=== PATIENT | female | born 1990 | race Caucasian/White ===

== ENCOUNTER 2021-09-28 10:37 | Outpatient (CLI) | payer MEDICAID ==
[~2021-09-28] VITALS: Ht 167.7 cm; Wt 92.4 kg
[2021-09-28 11:00] VITALS: BP 127/65
[2021-09-28 11:09] LABS: BILIRUBIN,URINE NEGATIVE (NEGATIVE); CLARITY,URINE SL CLOUDY; COLOR,URINE YELLOW; GLUCOSE, URINE (UA) NEGATIVE (NEGATIVE); KETONES,URINE NEGATIVE (NEGATIVE); LEUKOCYTE ESTERASE ,URINE NEGATIVE (NEGATIVE); NITRITE,URINE NEGATIVE (NEGATIVE); PH,URINE 7.5 (5-9); PROTEIN,URINE NEGATIVE (NEGATIVE)
[2021-09-28 11:19] LABS: BACTERIA,URINE TRACE /HPF; RBC,URINE RARE /HPF; WBC,URINE RARE /HPF
[2021-09-28 11:20] LABS: AMORPHOUS SEDIMENT,UR RARE AMOR PHOSPHATE /LPF
[2021-09-28 12:05] LABS: BASOPHILS % (AUTO) 0 % (0-10); EOSINOPHILS # (AUTO) 0.2 10^3/uL (0.0-0.3); EOSINOPHILS % (AUTO) 2 % (0-10); HEMATOCRIT 34 % (35-52); HEMOGLOBIN 11.3 g/dL (11.5-16.0); LYMPHOCYTES # (AUTO) 2.3 10^3/uL (1.0-4.0); LYMPHOCYTES % (AUTO) 17 % (12-44); MEAN CORPUSCULAR HEMOGLOBIN 29 pg (25-34); MEAN CORPUSCULAR HGB CONC 33 g/dL (32-36); MEAN CORPUSCULAR VOLUME 89 fL (80-99); MEAN PLATELET VOLUME 9.1 fL (9.0-12.2); MONOCYTES # (AUTO) 0.8 10^3/uL (0.0-1.0); MONOCYTES % (AUTO) 6 % (0-12); NEUTROPHILS # (AUTO) 10.1 10^3/uL (1.8-7.8); NEUTROPHILS % (AUTO) 74 % (42-75); PLATELET COUNT 239 10^3/uL (130-400); WHITE BLOOD COUNT 13.6 10^3/uL (4.3-11.0)
[2021-09-28 12:26] LABS: ALANINE AMINOTRANSFERASE 14 U/L (0-55); ALBUMIN 3.4 GM/DL (3.2-4.5); ALKALINE PHOSPHATASE 90 U/L (40-136); BILIRUBIN,TOTAL 0.2 MG/DL (0.1-1.0); BUN/CREATININE RATIO 13; CALCIUM 9.4 MG/DL (8.5-10.1); CARBON DIOXIDE 20 MMOL/L (21-32); CHLORIDE 106 MMOL/L (98-107); CREATINE KINASE 18 U/L (29-168); CREATININE SERUM 0.56 MG/DL (0.60-1.30); GFR ESTIMATED 125; GLUCOSE 91 MG/DL (70-105); POTASSIUM 3.8 MMOL/L (3.6-5.0); SODIUM 137 MMOL/L (135-145); TOTAL PROTEIN 6.4 GM/DL (6.4-8.2)
--- NOTE | 2021-09-29 08:07 | Physician Query-Final Dx ---
RICHIE09/29/21 0807: Clinic Account Progress/Dx Physician Query: Please give diagnosis Please include # weeks gestation Date of Service Sep 28, 2021 at 10:37 TONI BLACKWELL DO 09/30/21 1019: Clinic Account Progress/Dx DIAGNOSIS: Diagnosis 25 week gestation threatened labor, ruled out chest pain, ruled out anxiety/panic attack RICHIE,SepSep 29, 2021 08:07 TONI BLACKWELL DO Sep 30, 2021 10:19
== END 2021-09-28 14:17 | disposition home or self-care (01) ==
LOC: WSo 10:37 → LDRP 10:39 → WSo 14:17
PROVIDERS: ATTEND Obstetrics & Gynecology
DX: O62.9 Abnormality of forces of labor, unspecified (principal); O99.344 Other mental disorders complicating childbirth; Z3A.25 25 weeks gestation of pregnancy
CPT/HCPCS: 36415; 80053; 81000; 82550; 84484; 85025; 99213

== ENCOUNTER 2021-12-14 17:32 | Outpatient (CLI) | payer MEDICAID ==
[~2021-12-14] VITALS: Ht 167.7 cm; Wt 98.3 kg
[2021-12-14 17:50] VITALS: BP 122/71
[2021-12-14 18:12] VITALS: BP 122/71
[2021-12-14] MEDS ORDERED: FAMO-119 PO (18:23)
[2021-12-14] MEDS ORDERED: PREN1TAB79 PO (18:23)
[2021-12-14] MEDS ORDERED: CYCL10TA25 PO ×2 (18:24→18:27)
[2021-12-14 18:41] VITALS: BP 122/71
--- NOTE | 2021-12-15 08:26 | Physician Query-Final Dx ---
RICHIE,12/15/21 0826: Clinic Account Progress/Dx Physician Query: Please give diagnosis Please include # weeks gestation Date of Service Dec 14, 2021 at 17:32 TONI BLACKWELL DO 12/15/21 0938: Clinic Account Progress/Dx DIAGNOSIS: Diagnosis 36 week gestation threatened labor history of previous section grand multipara RICHIE,SepDec 15, 2021 08:26 TONI BLACKWELL DO Dec 15, 2021 09:38
== END 2021-12-14 19:18 | disposition home or self-care (01) ==
LOC: WSo 17:32 → LDRP 17:32 → WSo 19:18
PROVIDERS: ATTEND Obstetrics & Gynecology
DX: O60.03 Preterm labor without delivery, third trimester (principal); O34.211 Maternal care for low transverse scar from previous cesarean delivery; O09.43 Supervision of pregnancy with grand multiparity, third trimester; Z3A.36 36 weeks gestation of pregnancy
CPT/HCPCS: 99213

== ENCOUNTER 2022-01-03 05:52 | Inpatient (IN) | payer MEDICAID ==
[~2022-01-03] VITALS: Ht 167.7 cm; Wt 97.7 kg
[2022-01-03] VITALS (58 sets, daily range): BP systolic 88–138; BP diastolic 44–74
[~2022-01-03 05:52] MED LIST: CYCL10TA25 PO; FAMO-119 PO; PREN1TAB79 PO
--- OUTSIDE RECORDS SUMMARY | 2022-01-03 05:57 | XMS REPORT | Clinical Summary ---
Author Author [facility] Address Unknown Phone Unavailable Care Team Providers Care 911 Operator Name Role Phone No, Pcp MERINGUER PCP Unavailable Allergies Comments Active Allergy Reactions Severity Noted Date Amoxicillin-Pot Nausea And 07/09/2008 Clavulanate Vomiting Medications End Date Status Medication Sig Dispensed Refills Start Date Active alprazolam (XANAX) 0.5 MG Take 0.5 mg 0 tablet by mouth. Active buPROPion (WELLBUTRIN) 75 Take 75 mg by 0 MG tablet mouth. Active sertraline (ZOLOFT) 100 Take 100 mg 0 MG tablet by mouth. Active traZODone (DESYREL) 100 Take 100 mg 0 MG tablet by mouth. Active cyclobenzaprine Take 10 mg by 0 (FLEXERIL) 10 MG tablet mouth. 0 Active Problems Not on file Encounters Not on filefrom Last 3 Months Immunizations Name Administration Dates Next Due Flucelvax Quadrivalent 10/03/2018 Prefilled Syringe PPD Test 10/03/2018 Social History Date Tobacco Use Types Packs/Day Years Used Current Every Day Smoker 0.5 17 Smokeless Tobacco: Never Used Tobacco Cessation: Ready to Quit: No; Co unseling Given: Yes Sex Assigned at Date Recorded Not on file Last Filed Vital Signs Reading Time Taken Comments Vital Sign 108/78 02/19/2021 2:52 PM CDT Blood Pressure 89 02/19/2021 2:52 PM CDT Pulse 37.1 C (98.7 F) 02/19/2021 2:52 PM CDT Temperature 18 02/19/2021 2:52 PM CDT Respiratory Rate 98% 02/19/2021 2:52 PM CDT Oxygen Saturation - - Inhaled Oxygen Concentration - - Weight - - Height - - Body Mass Index Plan of Treatment Health Maintenance Due Date Last Done Comments Cervical Cancer: 2009 Screening Goals Not on file Medical Devices Not on file Procedures Not on filefrom Last 3 Months Results Not on filefrom Last 3 Months Additional Health Concerns Not on file Insurance Type Payer Benefit Subscriber ID Effective Phone Address Plan / Dates Group [facility] [employer] [id number] 2020-P [address] [address] [place] [address] Care Teams Start Date End Date 911 Operator Relationship Specialty 10/03/18 No, Pcp, MERINGUER PCP - General Family N/A Do not use Medicine
[2022-01-03] MEDS ORDERED: OXYTOCIN PRE-MIX DRIP 500 ML IV SCH (06:45)
[2022-01-03] MEDS ORDERED: AMPICILLIN FOR IV USE 2,000 MG in NS (IVPB) 50 ML IV SCH (06:45)
[2022-01-03 06:57] LABS: BILIRUBIN,URINE NEGATIVE (NEGATIVE); CLARITY,URINE CLEAR; COLOR,URINE YELLOW; GLUCOSE, URINE (UA) NEGATIVE (NEGATIVE); KETONES,URINE NEGATIVE (NEGATIVE); LEUKOCYTE ESTERASE ,URINE NEGATIVE (NEGATIVE); NITRITE,URINE NEGATIVE (NEGATIVE); PH,URINE 6.5 (5-9); PROTEIN,URINE TRACE (NEGATIVE)
[2022-01-03 07:16] LABS: BACTERIA,URINE TRACE /HPF; WBC,URINE 0-2 /HPF
[2022-01-03] MEDS ORDERED: fentaNYL 2 mcg/ml BUPIVA 0.125 0 ML ONE (07:31)
[2022-01-03] MEDS ORDERED: LACTATED RINGERS 1,000 ML IV ONE ×2 (07:31→17:06)
[2022-01-03 07:34] LABS: BASOPHILS % (AUTO) 0 % (0-10); EOSINOPHILS # (AUTO) 0.2 10^3/uL (0.0-0.3); EOSINOPHILS % (AUTO) 1 % (0-10); HEMATOCRIT 34 % (35-52); HEMOGLOBIN 10.9 g/dL (11.5-16.0); LYMPHOCYTES # (AUTO) 3.4 10^3/uL (1.0-4.0); LYMPHOCYTES % (AUTO) 21 % (12-44); MEAN CORPUSCULAR HEMOGLOBIN 25 pg (25-34); MEAN CORPUSCULAR HGB CONC 32 g/dL (32-36); MEAN CORPUSCULAR VOLUME 79 fL (80-99); MEAN PLATELET VOLUME 9.8 fL (9.0-12.2); MONOCYTES # (AUTO) 1.2 10^3/uL (0.0-1.0); MONOCYTES % (AUTO) 7 % (0-12); NEUTROPHILS # (AUTO) 11.6 10^3/uL (1.8-7.8); NEUTROPHILS % (AUTO) 70 % (42-75); PLATELET COUNT 362 10^3/uL (130-400); WHITE BLOOD COUNT 16.7 10^3/uL (4.3-11.0)
[2022-01-03] MEDS ORDERED: fentaNYL 2 mcg/ml BUPIVA 0.125 100 ML ONE ×2 (07:54→16:01)
[2022-01-03] MEDS: D5 LR IV SOLUTION 1,000 ML IV SCH ×2 (07:58→14:47)
[2022-01-03 08:21] LABS: BAND NEUTROPHILS 4 %; EOSINOPHILS % (MANUAL) 3 %; LYMPHOCYTES % (MANUAL) 21 %; MICROCYTOSIS MODERATE; MONOCYTES % (MANUAL) 4 %; NEUTROPHILS % (MANUAL) 68 %; POLYCHROMASIA SLIGHT
--- NOTE | 2022-01-03 08:29 | History & Physical-OB ---
OB - Chief Complaint & HPI Date/Time Date of Admission: Date of Admission: Jan 03, 2022 at 05:52 Date seen by a Provider: Jan 03, 2022 Time Seen by a Provider: 07:35 Chief Complaint/History OB-Reason for Admission/Chief: Induction of Labor Hx : 9 Hx Para: 6 Expected Date of Delivery: Jan 08, 2022 Gestational Age in Weeks: 39 Gestational Age in Days: 2 Admission Nurse Assessment Rev: Yes History of Labs see PN records Allergies and Home Medications Allergies Coded Allergies: No Known Drug Allergies (Unverified , 09/28/21) Patient Home Medication List Home Medication List Reviewed: Yes Cyclobenzaprine HCl (Cyclobenzaprine HCl) 10 Mg Tablet, 10 MG PO Q8H, (Reported) Entered as Reported by: KOURTNEY QUIROS on 12/14/211826 Last Action: Reviewed Famotidine (Pepcid) 20 Mg Tablet, 20 MG PO BID, (Reported) Entered as Reported by: KOURTNEY QUIROS on 12/14/211822 Last Action: Reviewed Vit W-Ca,Fe,FA(<1 mg) ( Vitamins) 1 Each Tablet, 1 EACH PO DAILY, (Reported) Entered as Reported by: KOURTNEY QUIROS on 12/14/211822 Last Action: Reviewed OB - History Hx of Present Care: Yes Ultrasounds: Normal mid trimester US Obstetrical Complications: None Medical Complications: None Patient Past Medical History n/a Social History/Family History 2nd Hand Smoke Exposure: Yes Immunizations Influenza Vaccine Up-to-Date: No; Not Current Hepatitis A: Yes Hepatitis B: Yes OB - Admission Exam Physical Exam Vitals: Vital Signs 01/03/22 01/03/22 06:54 06:58 Temp 36.9 Pulse 93 Resp 18 B/P (MAP) 122/73 (89) Pulse Ox 97 O2 Delivery Room Air HEENT: NCAT Heart: Rhythm Normal Lungs: Clear Abdomen: Gravid Extremities: Normal Reflexes: Normal Cervical Dilatation: 2cm Effacement: 50% Station: -2 Membranes: Intact Amniotic Fluid: Clear Heart Rate: 130's Accelerations: Accelerations Present Decelerations: No Decelerations Short Term Variability: Present Group Home Variability: Average (6-25) Contractions on Admission: 6-10 Minutes Apart Intensity: Mild Marques Scoring Tool (Modified) Dilation (cm): 1-2cm (1) Effacement (%): 51-79% (2) Descent/Station: -1,0 (2) Cervix Consistency: Soft (2) Cervix Position: Anterior (2) Add 1 point for: Each previous vaginal delivery (1) Marques Score: 14 Labs Laboratory Tests Test 01/03/22 06:30 01/03/22 07:15 Range/Units Urine Color YELLOW Urine Clarity CLEAR Urine pH 6.5 5-9 Urine Specific [place] 1.025 H 1.016-1.022 Urine Protein TRACE H NEGATIVE Urine Glucose (UA) NEGATIVE NEGATIVE Urine Ketones NEGATIVE NEGATIVE Urine Nitrite NEGATIVE NEGATIVE Urine Bilirubin NEGATIVE NEGATIVE Urine Urobilinogen 0.2 < = 1.0 MG/DL Urine Leukocyte Esterase NEGATIVE NEGATIVE Urine RBC (Auto) NEGATIVE NEGATIVE Urine RBC NONE /HPF Urine WBC 0-2 /HPF Urine Squamous Epithelial Cells 2-5 /HPF Urine Crystals NONE /LPF Urine Bacteria TRACE /HPF Urine Casts NONE /LPF Urine Mucus SMALL H /LPF Urine Culture Indicated NO White Blood Count 16.7 H 4.3-11.0 10^3/uL Red Blood Count 4.33 3.80-5.11 10^6/uL Hemoglobin 10.9 L 11.5-16.0 g/dL Hematocrit 34 L 35-52 % Mean Corpuscular Volume 79 L 80-99 fL Mean Corpuscular Hemoglobin 25 25-34 pg Mean Corpuscular Hemoglobin Concent 32 32-36 g/dL Red Cell Distribution Width 14.6 H 10.0-14.5 % Platelet Count 362 130-400 10^3/uL Mean Platelet Volume 9.8 9.0-12.2 fL Immature Granulocyte % (Auto) 1 % Neutrophils (%) (Auto) 70 42-75 % Lymphocytes (%) (Auto) 21 12-44 % Monocytes (%) (Auto) 7 0-12 % Eosinophils (%) (Auto) 1 0-10 % Basophils (%) (Auto) 0 0-10 % Neutrophils # (Auto) 11.6 H 1.8-7.8 10^3/uL Lymphocytes # (Auto) 3.4 1.0-4.0 10^3/uL Monocytes # (Auto) 1.2 H 0.0-1.0 10^3/uL Eosinophils # (Auto) 0.2 0.0-0.3 10^3/uL Basophils # (Auto) 0.0 0.0-0.1 10^3/uL Immature Granulocyte # (Auto) 0.2 H 0.0-0.1 10^3/uL Neutrophils % (Manual) 68 % Lymphocytes % (Manual) 21 % Monocytes % (Manual) 4 % Eosinophils % (Manual) 3 % Band Neutrophils 4 % Polychromasia SLIGHT Microcytosis MODERATE OB - Assessment/Plan/Diagnosis Assessment Assessment: induction of labor Admission Dx 31 yo @ 39 weeks TOLAC GBS pos Admission Status: Inpatient Order (span 2 midnights) Reason for Inpatient Admission: IOL at 39 weeks TOLAC Plan Plan: Induction Induction Method: AROM JANEL MORELOS DO Jan 03, 2022 08:29
[2022-01-03] MEDS ORDERED: fentaNYL INJ 100 MCG/2 ML AMP ONE ×2 (08:50→17:22)
[2022-01-03] MEDS ORDERED: ONDANSETRON 4 MG/2 ML (SDV) Z0FRAN ONE ×2 (09:03→17:22)
[2022-01-03] MEDS: AMPICILLIN FOR IV USE 1,000 MG in NS (IVPB) 50 ML IV SCH ×3 (12:13→16:18)
[2022-01-03] MEDS ORDERED: METOCLOPRAMIDE INJ 10 MG/2 ML (REGLAN) ONE (17:06)
[2022-01-03] MEDS ORDERED: FAMOTIDINE 20MG/2ML IV (PEPCID) ONE (17:06)
[2022-01-03] MEDS ORDERED: CITRIC ACID/SOB CIT (BICITRA) 30 ML UDC ONE (17:06)
[2022-01-03] MEDS ORDERED: ceFAZolin 2 GM IV Premixed 50 ML ONE (17:07)
[2022-01-03] MEDS ORDERED: OXYTOCIN PRE-MIX DRIP 1,000 ML IV ONE (17:22)
--- NOTE | 2022-01-03 17:41 | Progress Note ---
Standard Progress Note Progress Notes/Assess & Plan Date Seen by a Provider: Jan 03, 2022 Time Seen by a Provider: 17:10 Progress/Assessment & Plan Patient admitted this AM for TOLAC. AROM performed and pitocin augmentation as well as GBS + treatment started. She began at 2 cm, and progressed to 3 cm. She had an epidural placed at admission as is protocol. She was unable to progress throughout the remainder of the day nearly 7 hours of pitocin augmentation and position changes. At this point the patient is frustrated and requesting RLTCS. Risk reviewed, all questions answered and consent obtained. Patient to be take to OR momentarily. JANEL MORELOS DO Jan 03, 2022 17:41
[2022-01-03] MEDS ORDERED: ONDANSETRON 4 MG/2 ML (SDV) Z0FRAN IVP PRN (17:45)
[2022-01-03] MEDS ORDERED: MEASLES,MUMPS,RUBELLA 1 EA INJ SC SCH (17:45)
[2022-01-03] MEDS ORDERED: TETANUS,DIPTH,PERTUSS P/F (BOOSTRIX) 0.5 ML VIAL IM SCH (17:45)
[2022-01-03] MEDS ORDERED: NALOXONE 0.4 MG/ML 1 ML (NARCAN) VIAL IV PRN (17:45)
--- NOTE | 2022-01-03 17:48 | Discharge Inst-Women's Service ---
Discharge Inst-Women's Serv Depart Medication/Instructions New, Converted or Re-Newed RX: Transmitted to Pharmacy Problems Reviewed?: Yes Consults/Follow Up Additional Follow Up: Yes Activity Activity: Activity as Tolerated Driving Instructions: No Driving for 1 Week NO SMOKING: NO SMOKING Nothing Inside Vagina: No Douching, No [place], No Tampons Diet Discharge Diet: No Restrictions Symptoms to Report to : Bleeding Excessive, Pain Increased, Fever Over 101 Degrees F, Vaginal Bleeding Increase, Questions/Concerns For Any Problems or Questions: Contact Your Physician Skin/Wound Care Infection Signs and Symptoms: Increased Redness, Foul Odor of Wound, Increased Drainage, Skin Itchy or Has a Rash, Increased Swelling, Temperature Above 101 F Operative Area Clean and Dry: Keep Incision Clean/Dry Stitches/[place]/Dermabond: Dermabond, Care of Stitches Bathing Instructions: JANEL Adams DO Jan 03, 2022 17:48
[2022-01-03] MEDS ORDERED: IBUP-844 PO (17:50)
[2022-01-03] MEDS ORDERED: ACHD5005 PO (17:50)
[2022-01-03] MEDS ORDERED: DOCU100C37 PO (17:50)
[2022-01-03] MEDS ORDERED: KETOROLAC 30 MG/ML VIAL ONE (18:40)
[2022-01-03] MEDS ORDERED: BUPIVACAINE 0.25% 10 ML (SENSORCAINE) VIAL ONE (18:46)
[2022-01-03] MEDS: KETOROLAC 30 MG/ML VIAL IV SCH (20:06)
[2022-01-03] MEDS: DOCUSATE SODIUM 100 MG (COLACE) CAP PO SCH (20:07)
[2022-01-03] MEDS: OXYTOCIN PRE-MIX DRIP 500 ML IV SCH (20:15)
--- NOTE | 2022-01-03 21:32 | OPERATIVE REPORT ---
DATE OF SERVICE: PREOPERATIVE DIAGNOSES: 1. A 31-year-old G9, P6 at 39 and 2 weeks' gestation. 2. Failure to progress. 3. Repeat . POSTOPERATIVE DIAGNOSES: 1. A 31-year-old G9, P6 at 39 and 2 weeks' gestation. 2. Failure to progress. 3. Repeat . PROCEDURE: Repeat low transverse section. SURGEON: Manuelito Morelos DO ANESTHESIA: Spinal. ESTIMATED BLOOD LOSS: 200 mL. URINE OUTPUT: 100 mL clear at the end of the procedure. FLUIDS: 1000 mL lactated Ringer's solution. FINDINGS: A live male infant weighing 7 pounds 5 ounces, Apgars of 8 and 9. Grossly normal appearing uterus, bilateral fallopian tubes and ovaries. SPECIMEN SENT: None. INDICATIONS FOR PROCEDURE: This 31-year-old female patient who was admitted for labor. Please see my preoperative note for complete details pertaining to the patient's labor course and indications for . The patient was then taken to the operating room where spinal analgesia was found to be adequate. She was placed in the supine position with leftward tilt, prepped and draped in normal sterile fashion. A timeout was performed and anesthesia was tested. I then proceeded to make a Pfannenstiel skin incision with a knife and carried down to the underlying fascia using Bovie cautery. The superior aspect of fascial incision was then grasped with Misty clamps, tented up and dissected off the underlying rectus muscles. The inferior aspect of the fascial incision was then grasped with Misty clamps, tented up and dissected off the underlying rectus muscles. Rectus muscles were then dissected down the midline using Mora scissors, which exposed the peritoneum, which entered bluntly and extended using blunt traction. The peritoneum was entered bluntly and extended using blunt traction. Terry ring retractor was placed in the peritoneal incision, which offers excellent lateral sidewall retraction. I identified the lower uterine segment, which was found to be thinned out. I make a low transverse incision to the vesicouterine peritoneum and bluntly dissected off the lower uterine segment, creating a bladder flap. I then proceeded with myotomy until membranes were visualized, at which point I extended the uterine incision laterally and superiorly using bandage scissors. Amniotomy was performed in the process of doing this. The infant was found in vertex presentation. With gentle fundal pressure, the infant's head was elevated up to the incision where the nares and oropharynx were bulb suctioned and nuchal cord was reduced x1. Anterior and posterior shoulders were delivered. The infant was then brought to the operative field with cord serially clamped and cut and was handed off to waiting nurses in attendance. Cord blood was collected. 3-vessel cord with intact placenta was delivered spontaneously thereafter. IV Pitocin was initiated to facilitate uterine contraction. Uterine fundus confirmed by manual massage. The uterus was then exteriorized and cleared of endometrial clots and debris. I then proceeded with closing the uterine incision using 0 Vicryl suture in a running locked fashion. Second layer of imbricating 0 Monocryl was placed. Excellent hemostasis was noted after doing this. I then placed the uterus back in the pelvis and copiously irrigated the pelvis using normal saline. Once again, there was no active bleeding noted from any of my dissection planes. I placed Interceed antiadhesive over my low transverse incision. I removed the Terry ring retractor and then proceeded with closing the peritoneum using 3-0 Vicryl suture in running fashion. The rectus muscles were reapproximated using 3-0 Vicryl suture in interrupted fashion. The fascia was reapproximated using 0 Vicryl suture in running fashion. Subcutaneous tissue was reapproximated using 3-0 plain interrupted subcutaneous stitch and the skin reapproximated using 4-0 Monocryl running subcuticular. Dermabond was applied to incision and sterile dressing with adhesive white tape. Two grams Ancef given preoperatively for infection prophylaxis. Job ID: [id number] DocumentID: [id number] Dictated Date: 01/03/2022 18:38:57 Clearance Cutter Date: 01/03/2022 21:31:41 Dictated By: MANUELITO MORELOS DO
[2022-01-03] MEDS: HYDROcodone/APAP 5 MG/325 MG (LORTAB) TAB PO PRN (23:16)
[2022-01-04] MEDS: OXYTOCIN PRE-MIX DRIP 500 ML IV SCH (00:28)
[2022-01-04] MEDS: AMPICILLIN FOR IV USE 1,000 MG in NS (IVPB) 50 ML IV SCH ×2 (02:27→02:30)
[2022-01-04] MEDS: CATHETER FLUSH 10 ML SYR IV SCH ×3 (02:29→08:31)
[2022-01-04] MEDS: D5 LR IV SOLUTION 1,000 ML IV SCH (02:29)
[2022-01-04 02:30] VITALS: BP 106/59
[2022-01-04] MEDS: KETOROLAC 30 MG/ML VIAL IV SCH ×3 (02:39→19:47)
[2022-01-04] MEDS: HYDROcodone/APAP 5 MG/325 MG (LORTAB) TAB PO PRN ×3 (05:21→21:31)
[2022-01-04 05:28] VITALS: BP 114/58
[2022-01-04 06:09] LABS: BASOPHILS % (AUTO) 0 % (0-10); EOSINOPHILS # (AUTO) 0.2 10^3/uL (0.0-0.3); EOSINOPHILS % (AUTO) 1 % (0-10); HEMATOCRIT 31 % (35-52); HEMOGLOBIN 9.8 g/dL (11.5-16.0); LYMPHOCYTES % (AUTO) 22 % (12-44); MEAN CORPUSCULAR HEMOGLOBIN 25 pg (25-34); MEAN CORPUSCULAR HGB CONC 32 g/dL (32-36); MEAN CORPUSCULAR VOLUME 80 fL (80-99); MEAN PLATELET VOLUME 10.3 fL (9.0-12.2); MONOCYTES # (AUTO) 1.1 10^3/uL (0.0-1.0); MONOCYTES % (AUTO) 8 % (0-12); NEUTROPHILS # (AUTO) 9.5 10^3/uL (1.8-7.8); NEUTROPHILS % (AUTO) 69 % (42-75); PLATELET COUNT 346 10^3/uL (130-400); WHITE BLOOD COUNT 13.8 10^3/uL (4.3-11.0)
[2022-01-04] MEDS: DOCUSATE SODIUM 100 MG (COLACE) CAP PO SCH ×2 (08:31→21:31)
[2022-01-04 08:40] VITALS: BP 120/58
--- NOTE | 2022-01-04 10:13 | Postpartum Progress Note ---
Note Note Day # 1 Subjective: Patient is without complaints. Ambulating, voiding. Tolerating a regular diet without nausea or vomiting. Normal lochia. Pain is tolerable but not feeling relief with oral pain medications. Patient states she was given oral morphine for a back injury a couple of years ago and feel her medication tolerance was affected. Physical Exam: General - Alert and oriented, no apparent distress Abdomen - Soft, appropriately tender to palpation, non-distended, fundus firm at umbilicus; incision c/d/i Extremities - no edema, negative Mei's bilaterally Assessment: Post- day #1 , status post RLTCS. Recovering well, hemodynamically stable Acute blood loss anemia Plan: Routine care. Encourage breast feeding. Encourage ambulation. Ferrous sulfate supplementation. Plan for discharge tomorrow Vitals - Labs Vital Signs - I&O Vital Signs Date Time Temp Pulse Resp B/P (MAP) Pulse Ox O2 Delivery O2 Flow Rate FiO2 01/04/22 05:28 36.6 77 18 114/58 (76) 97 Room Air 01/04/22 02:30 36.6 66 18 106/59 (75) 98 Room Air 01/03/22 23:00 36.9 71 18 98/50 (66) 97 Room Air 01/03/22 20:15 36.1 61 18 110/65 (80) 98 Room Air 01/03/22 19:43 Room Air 01/03/22 19:43 36.4 18 113/55 (74) 99 Room Air 01/03/22 19:30 Room Air 01/03/22 19:30 36.2 18 101/60 (74) 98 Room Air 01/03/22 19:15 36.3 18 97/62 (74) 98 Room Air 01/03/22 19:15 Room Air 01/03/22 18:58 36.3 13 99/44 (62) 97 Room Air 01/03/22 18:58 Room Air 01/03/22 18:43 Room Air 01/03/22 18:43 36.3 13 95/54 (68) 97 Room Air 01/03/22 17:30 36.7 Room Air 01/03/22 17:24 88 16 111/68 (82) Room Air 01/03/22 17:09 74 117/73 (88) Room Air 01/03/22 16:54 65 117/66 (83) Room Air 01/03/22 16:39 67 104/62 (76) Room Air 01/03/22 16:34 36.7 01/03/22 16:24 63 109/61 (77) Room Air 01/03/22 16:10 67 106/56 (73) Room Air 01/03/22 15:47 36.5 18 01/03/22 15:39 89 105/56 (72) Room Air 01/03/22 15:23 87 93/54 (67) Room Air 01/03/22 15:12 76 97/53 (68) Room Air 01/03/22 14:54 76 112/60 (77) Room Air 01/03/22 14:24 63 90/51 (64) Room Air 01/03/22 14:10 63 88/50 (63) Room Air 01/03/22 14:00 36.6 14 01/03/22 13:53 60 97/52 (67) Room Air 01/03/22 13:41 58 90/55 (67) Room Air 01/03/22 13:24 64 97/52 (67) Room Air 01/03/22 13:09 68 110/56 (74) Room Air 01/03/22 12:55 62 114/56 (75) Room Air 01/03/22 12:39 72 108/56 (73) Room Air 01/03/22 12:25 74 111/67 (82) Room Air 01/03/22 12:13 35.9 01/03/22 12:09 75 96/56 (69) Room Air 01/03/22 11:54 58 98/51 (67) Room Air 01/03/22 11:42 66 93/53 (66) Room Air 01/03/22 11:25 67 102/57 (72) Room Air 01/03/22 11:10 66 102/55 (71) Room Air 01/03/22 10:54 67 100/55 (70) Room Air 01/03/22 10:42 36.0 01/03/22 10:39 70 104/63 (77) Room Air 01/03/22 10:24 85 112/65 (81) Room Air I & O 01/04/22 07:00 Intake Total 2964.8 ml Output Total 2330 ml Balance 634.8 ml Labs Laboratory Tests 01/04/22 05:42: White Blood Count 13.8H, Red Blood Count 3.89, Hemoglobin 9.8L, Hematocrit 31L, Mean Corpuscular Volume 80, Mean Corpuscular Hemoglobin 25, Mean Corpuscular Hemoglobin Concent 32, Red Cell Distribution Width 14.8H, Platelet Count 346, Mean Platelet Volume 10.3, Immature Granulocyte % (Auto) 1, Neutrophils (%) (Auto) 69, Lymphocytes (%) (Auto) 22, Monocytes (%) (Auto) 8, Eosinophils (%) (Auto) 1, Basophils (%) (Auto) 0, Neutrophils # (Auto) 9.5H, Lymphocytes # (Auto) 3.0, Monocytes # (Auto) 1.1H, Eosinophils # (Auto) 0.2, Basophils # (Auto) 0.0, Immature Granulocyte # (Auto) 0.1 VENUS JACOBO APRN Jan 04, 2022 10:13
[2022-01-04] MEDS ORDERED: IBUPROFEN 600 MG (MOTRIN) TAB PO ONE (13:23)
[2022-01-04] MEDS: IBUPROFEN 600 MG (MOTRIN) TAB PO SCH ×2 (13:30→18:49)
[2022-01-04 13:32] VITALS: BP 103/57
--- NOTE | 2022-01-04 14:18 | Anesthesia-Regional Post-Op ---
Regional Patient Condition Mental Status: Alert, Oriented x3 Circulation: Same as Pre-Op Headache: Absent Sensation: Full Recovery Motor Block: Absent Post Op Complications Complications None Follow Up Care/Instructions Patient Instructions None needed. Anesthesia/Patient Condition Patient is doing well, no complaints, stable vital signs, no apparent adverse anesthesia problems. CHASTITY PHIPPS DO Jan 04, 2022 14:18
[2022-01-04] MEDS: SIMETHICONE 80 MG (MYLICON) CHEW PO SCH ×3 (15:45→21:31)
[2022-01-04 18:49] VITALS: BP 105/56
[2022-01-05 00:51] VITALS: BP 133/60
[2022-01-05] MEDS: IBUPROFEN 600 MG (MOTRIN) TAB PO SCH ×2 (00:51→06:13)
[2022-01-05 06:18] VITALS: BP_SYST 114; BP_SYST 133; BP_DIAS 56; BP_DIAS 60
[2022-01-05] MEDS: DOCUSATE SODIUM 100 MG (COLACE) CAP PO SCH (08:50)
--- NOTE | 2022-01-05 09:55 | Postpartum Progress Note ---
Note Note Day # 2 Subjective: Patient is without complaints. Ambulating, voiding. Tolerating a regular diet without nausea or vomiting. Normal lochia. Pain is well controlled with oral pain medications, reports pain significantly improved. Physical Exam: General - Alert and oriented, no apparent distress Abdomen - Soft, appropriately tender to palpation, non-distended, fundus firm at umbilicus; incision c/d/i Extremities - no edema, negative Mei's bilaterally Assessment: Post- day # 2, status post RLTCS. Recovering well, hemodynamically stable Acute blood loss anemia Plan: Routine care. Encourage breast feeding. Encourage ambulation. Ferrous sulfate supplementation. Plan for discharge today Vitals - Labs Vital Signs - I&O Vital Signs Date Time Temp Pulse Resp B/P (MAP) Pulse Ox O2 Delivery O2 Flow Rate FiO2 01/05/22 06:18 36.7 86 18 114/56 (75) 97 Room Air 01/05/22 00:51 36.7 69 18 133/60 (84) 97 Room Air 01/04/22 18:49 36.3 72 18 105/56 (72) 96 Room Air 01/04/22 13:32 36.6 76 18 103/57 (72) 98 Room Air I & O 01/05/22 07:00 Intake Total 1200 ml Balance 1200 ml VENUS JACOBO USER EXPERIENCE ANALYST Jan 05, 2022 09:55
[2022-01-05] MEDS: SIMETHICONE 80 MG (MYLICON) CHEW PO SCH (10:15)
[2022-01-05 10:28] VITALS: BP 120/59
== END 2022-01-05 11:30 | disposition home or self-care (01) | DRG 787 ==
LOC: LDRP 05:52
PROVIDERS: ADMIT Obstetrics & Gynecology; ATTEND Obstetrics & Gynecology
PROC: 10907ZC Drainage of Amniotic Fluid, Therapeutic from Products of Conception, Via Natural or Artificial Opening (ICD-10-PCS; 2022-01-03)
PROC: 10D00Z1 Extraction of Products of Conception, Low, Open Approach (ICD-10-PCS; principal; 2022-01-03 17:46)
DX: O34.211 Maternal care for low transverse scar from previous cesarean delivery (principal); D62 Acute posthemorrhagic anemia; O99.824 Streptococcus B carrier state complicating childbirth; Z37.0 Single live birth; O32.4XX0 Maternal care for high head at term, not applicable or unspecified; O69.81X0 Labor and delivery complicated by cord around neck, without compression, not applicable or unspecified; O90.81 Anemia of the puerperium; Z3A.39 39 weeks gestation of pregnancy
CPT/HCPCS: 36415; 81000; 85007; 85025; 85027; 86850; 86900; 86901

== ENCOUNTER → 2022-05-09 | Outpatient (CLI) | payer MEDICAID ==
[~2022-05-09] MED LIST changes: +ACHD5005 PO; +DOCU100C37 PO; +IBUP-844 PO
== END | disposition home or self-care (01) ==
LOC: PREOP 05:28
PROVIDERS: ATTEND Obstetrics & Gynecology
DX: Z01.818 Encounter for other preprocedural examination (principal)

== ENCOUNTER 2022-06-13 05:29 | Outpatient (CLI) | payer MEDICAID ==
[~2022-06-13] VITALS: Ht 167.7 cm; Wt 92.0 kg
== END 2022-06-13 12:19 ==
LOC: PREOP 05:29
PROVIDERS: ATTEND Obstetrics & Gynecology
DX: Z01.818 Encounter for other preprocedural examination (principal); N81.10 Cystocele, unspecified; N94.6 Dysmenorrhea, unspecified

== ENCOUNTER 2022-12-28 21:03 | Emergency (ER) | payer MEDICAID ==
[~2022-12-28] VITALS: Ht 167.7 cm; Wt 94.0 kg
[2022-12-28 21:06] VITALS: BP 130/77
[2022-12-28] MEDS ORDERED: RX-OFLOXACIN 0.3% OPHTH SOLN 5 ML OP STA (22:09)
[2022-12-28] MEDS ORDERED: KETOROLAC 60 MG/2 ML VIAL IM STA (22:09)
[2022-12-28] MEDS ORDERED: cefTRIAXone 1,000 MG VIAL (for IV or IM) IM STA (22:09)
--- NOTE | 2022-12-28 22:13 | ED EENT ---
History of Present Illness General Chief Complaint: Ear Problems Stated Complaint: R EAR PAIN Nursing Triage Note: PATIENT REPORTS HER EARDRUM "BUSTED" STATES SHE WAS SEEN BY DR KNOWLES [employer]PER[employer] AT 1330, A PRESCRIPTION WAS SUPPOSE TO BE AT THE PHARMACY BUT IT WAS NOT. PATIENT STATES SHE IS HAVING A LOT OF PAIN AND PRESSURE IN HER RIGHT EAR, STATES ITS FEELS LIKE ITS POPPING AND TINGLING, STARTED BLEEDING PRIOR TO ARRIVAL. Source: patient History of Present Illness Date Seen by Provider: Dec 28, 2022 Time Seen by Provider: 21:41 Initial Comments 32-year-old female presenting with complaints of bilateral ear pain and drainage. She had been seen earlier today due to the pain and drainage which started last night. She states that the clinic and told her that she had fluid behind her eardrums and bulging. The head reportedly sent prescriptions to the pharmacy but the pharmacy said that they did not get them. She was continuing to have a lot of pain and pressure in her right ear and there is bleeding coming from the ear canal. While waiting in the emergency department to be seen she started having pus draining from her left ear. She denied fever or chills. She does have a longstanding history of chronic and recurrent ear infections and has seen Dr. Arvizu in the past. She had tried some ibuprofen prior to coming to the emergency department but it was not helping her pain. She has intermittent sharp pains especially to the right ear and throat. Timing/Duration: abrupt Severity: severe Location: ear (R), ear (L) Prearrival Treatment: over the counter meds Modifying Factors: Worse With Activity, Worse With Coughing Associated Symptoms: change in hearing, cough, ear drainage; No fever; nasal congestion/drainage; No poor fluid intake, No poor solids intake, No sinus infection; sore throat; No tooth pain, No voice change Allergies and Home Medications Allergies Uncoded Allergies: AMOXICILLIN-POT CLAVULANATE (Allergy, Mild, Nausea And Vomiting, 06/13/22) Patient Home Medication List Home Medication List Reviewed: Yes Hydrocodone/Acetaminophen (Hydrocodone-Acetamin 5-325 mg) 5 Mg-325 Mg Tablet, 1 TAB PO Q6H PRN for PAIN SEVERE Prescribed by: ROSANA EDGE on 12/28/222230 Levofloxacin (Levofloxacin) 750 Mg Tablet, 750 MG PO DAILY Prescribed by: ROSANA EDGE on 12/28/222228 Ofloxacin (Ofloxacin) 0.3 % Drops, 10 DROPS OT BID Prescribed by: ROSANA EDGE on 12/28/222228 Review of Systems Review of Systems Constitutional: No chills, No fever Eyes: No Symptoms Reported Ears: See HPI Nose: see HPI Mouth: no symptoms reported Throat: pain, painful swallowing Respiratory: cough Cardiovascular: no symptoms reported Gastrointestinal: no symptoms reported Musculoskeletal: no symptoms reported Skin: no symptoms reported Neurological: No Symptoms Reported Past Hqyxuqm-Rcppvv-Humeem Hx Seasonal Allergies Seasonal Allergies: Yes Past Medical History Surgery/Hospitalization HX: TUMMY TUCK, TONSIL, 2 Surgeries: Yes (ABDOMINOPLASTY, MAMMOPLASTY) Adenoidectomy, Section, Kidney Transplant, Tonsillectomy Respiratory: No Currently Using CPAP: No Currently Using BIPAP: No Cardiac: No Neurological: No Female Reproductive Disorders: Endometriosis, Ovarian Cyst Genitourinary: Yes Kidney Stones Gastrointestinal: Yes Gastroesophageal Reflux, Gall Bladder Disease Musculoskeletal: Yes (BACK,NOSE,RIGHT HAND) Fractures Endocrine: No HEENT: No Cancer: No Psychosocial: Yes Anxiety, PTSD, Depression Integumentary: No Blood Disorders: No Physical Exam Vital Signs Vital Signs - First Documented 12/28/22 21:06 Temp 36.5 Pulse 86 Resp 20 B/P (MAP) 130/77 (94) Pulse Ox 98 O2 Delivery Room Air Height, Weight, BMI Height: '" Weight: lbs. oz. kg; 33.00 BMI Method: General Appearance: WD/WN, mild distress (intermittently crying out with pain to right ear and throat especially) Eyes: bilateral eye PERRL, bilateral eye EOMI Ears: bilateral ear TM dull, bilateral ear TM red, bilateral ear TM bulging, bilateral ear TM perforation (bleeding from right ear and purulent drainage left ear) Mouth/Throat: pharynx swelling (with erythema) Neck: full range of motion, supple, tender lateral (submandibular lymphadenopathy and tender to palpation right greater than left) Cardiovascular: normal peripheral pulses, regular rate, rhythm Respiratory: chest non-tender, lungs clear, normal breath sounds Neurologic/Psychiatric: alert Skin: normal color, warm/dry Progress/Results/Core Measures Results/Orders My Orders Orders - ROSANA EDGE MD Ketorolac Injection (Toradol Injection) (12/28/22 22:09) Rx-Ofloxacin 0.3% Ophth Soln (Rx-Ocuflox (12/28/22 22:09) Rx-Hydrocodone/Apap 5-325 Mg (Rx-Vicodin (12/28/22 22:15) Ceftriaxone Iv/Im (Rocephin Iv/Im) (12/28/22 22:09) Lidocaine 1% Inj 20 Ml (Xylocaine 1% Inj (12/28/22 22:15) Medications Given in ED Current Medications Medications Dose Ordered Sig/Stefan Route Start Time Stop Time Status Last Admin Dose Admin Acetaminophen/ Hydrocodone Bitart 1 ea Q4H PRN PO 12/28/22 22:15 12/28/22 23:05 DC 12/28/22 22:46 1 EA Lidocaine HCl 2.1 ml ONCE ONCE INJ 12/28/22 22:15 12/28/22 22:16 DC 12/28/22 22:46 2.1 ML Vital Signs/I&O 12/28/22 21:06 Temp 36.5 Pulse 86 Resp 20 B/P (MAP) 130/77 (94) Pulse Ox 98 O2 Delivery Room Air Blood Pressure Mean: 94 Progress Progress Note : Progress Note With her having drainage from both ears and signs of bilateral tympanic membrane perforation will treat with oral and topical antibiotics. Since there is perforation present will use ofloxacin drops 10 drops to each ear twice a day for 14 days. For severe pain use hydrocodone 1 every 4-6 hours as needed for severe pain. May continue with ibuprofen [id number]. Start Levaquin 750 mg a day for otitis media with perforation and drainage. This will also help cover her throat if there was infection there since she was having pain with swallowing. Counseled to follow-up with Dr. Arvizu from ENT. Departure Impression Primary Impression: Serous otitis media of both ears with rupture of tympanic membrane Additional Impression: Pharyngitis Qualified Codes: J02.9 - Acute pharyngitis, unspecified Disposition: 01 HOME, SELF-CARE Condition: Stable Departure-Patient Inst. Decision time for Depature: 22:31 Referrals: JANEL ARVIZU MD, KATRINA M MD FENECH, MICHAEL S DO (PCP/Family) Primary Care Physician Patient Instructions: Ruptured Eardrum ED, Ear Infections (Otitis Media) in Adults (DC), Sore Throat, Adult ED Add. Discharge Instructions: Use the antibiotic eardrops ofloxacin 10 drops to each ear twice a day for the ruptured eardrums with serous otitis media. He would use these drops for 14 days. For severe pain you could use the hydrocodone with acetaminophen 5/325 mg pills 1 every 6 hours as needed for severe pain. This can cause constipation as well as make you drowsy so it is not recommended that you drive while taking the medicine. If you are prone to constipation consider taking MiraLAX or a laxative to help prevent the constipation. Take the Levaquin by mouth to help treat for the sore throat and ear infection. Call and follow-up with Dr. Arvizu from ear nose and throat about the recurrent ear infection with rupture. Try to use plugs in your ears when taking a shower or when there might get water in them. You could continue to take ibuprofen in addition to the pain medicine to help with inflammation and swelling. All discharge instructions reviewed with patient and/or family. Voiced understanding. Scripts Levofloxacin (Levofloxacin) 750 Mg Tablet 750 MG PO DAILY for Otitis Media w/Rupture for 7 Days, #7 TAB 0 Refills Prov: ROSANA EDGE MD 12/28/22 Hydrocodone/Acetaminophen (Hydrocodone-Acetamin 5-325 mg) 5 Mg-325 Mg Tablet 1 TAB PO Q6H PRN for PAIN SEVERE for 3 Days, #12 TAB 0 Refills Prov: ROSANA EDGE MD 12/28/22 Ofloxacin (Ofloxacin) 0.3 % Drops 10 DROPS OT BID for Serous Otitis w/Rupture for 14 Days, #10 ML 0 Refills Prov: ROSANA EDGE MD 12/28/22 ROSANA EDGE MD Dec 28, 2022 22:13
[2022-12-28] MEDS ORDERED: LIDOCAINE 1% INJ 20 ML VIAL INJ ONE (22:15)
[2022-12-28] MEDS ORDERED: LEVO750T PO (22:29)
[2022-12-28] MEDS ORDERED: OFLO5DRO33 OT (22:29)
[2022-12-28] MEDS ORDERED: ACHD5005 PO (22:29)
== END 2022-12-28 22:38 | disposition home or self-care (01) ==
LOC: EDUNIT# 21:03 → ER FS 21:05
DX: H65.93 Unspecified nonsuppurative otitis media, bilateral (principal); H72.93 Unspecified perforation of tympanic membrane, bilateral; J02.9 Acute pharyngitis, unspecified; Z88.0 Allergy status to penicillin; Z28.310 Unvaccinated for COVID-19
CPT/HCPCS: 99283